=== PATIENT | male | born 1960 | race Caucasian/White ===

== ENCOUNTER 2016-07-10 12:25 | Outpatient (CLI) | payer BC | END 2016-07-10 12:26 | disposition home or self-care (01) | DX: Z00.00 Encounter for general adult medical examination without abnormal findings (principal); Z12.5 Encounter for screening for malignant neoplasm of prostate; R82.90 Unspecified abnormal findings in urine ==

== ENCOUNTER 2018-05-04 04:56 | Outpatient (CLI) | payer BC ==
[2018-05-04 05:20] LABS: BILIRUBIN,URINE NEGATIVE (NEGATIVE); GLUCOSE, URINE (UA) NEGATIVE (NEGATIVE); KETONES,URINE (UA) NEGATIVE (NEGATIVE); LEUKOCYTE ESTERASE, URINE NEGATIVE (NEGATIVE); NITRITE,URINE NEGATIVE (NEGATIVE); OCCULT BLOOD,URINE NEGATIVE (NEGATIVE); PH,URINE 6.5 PH (5.0-7.5); PROTEIN,URINE NEGATIVE (NEGATIVE); UROBILINOGEN,URINE 0.2 (NORMAL) E.U./dL (NORMAL)
[2018-05-04 05:30] LABS: BACTERIA,URINE None Seen /HPF (None Seen); CLARITY,URINE CLEAR (CLEAR); MUCUS,URINE Few Strands; RBC,URINE 0-5 /HPF (0-5); SQUAMOUS EPITHELIAL CELL,UR RARE Squamous (<= Few)
[2018-05-04 05:38] LABS: BASOPHILS # (AUTO) 0.1 10^3/uL (0.0-0.1); BASOPHILS % (AUTO) 0.8 %; EOSINOPHILS # (AUTO) 0.2 10^3/uL (0.0-0.7); EOSINOPHILS % (AUTO) 2.3 %; LYMPHOCYTES # (AUTO) 1.8 10^3/uL (1.5-3.5); LYMPHOCYTES % (AUTO) 26.4 %; MEAN CORPUSCULAR HEMOGLOBIN 29.1 pg (27.0-31.0); MEAN CORPUSCULAR VOLUME 85.7 fL (80.0-94.0); MEAN PLATELET VOLUME 7.3 fL (7.4-11.4); MONOCYTES # (AUTO) 0.5 10^3/uL (0.0-1.0); MONOCYTES % (AUTO) 7.9 %; NEUTROPHILS # (AUTO) 4.3 10^3/uL (1.5-6.6); NEUTROPHILS % (AUTO) 62.6 %; PLT - PLATELET COUNT 238 10^3/uL (130-450); RED CELL DISTRIBUTION WIDTH 13.3 % (12.0-15.0); WHITE BLOOD COUNT 6.8 x10^3/uL (4.8-10.8)
[2018-05-04 05:40] LABS: ALBUMIN 4.4 g/dL (3.2-5.5); ALBUMIN/GLOBULIN RATIO 1.5 (1.0-2.2); ALKALINE PHOSPHATASE 89 IU/L (42-121); ALT ALANINE AMINOTRANSFERASE 21 IU/L (10-60); AST ASPARTATE AMINOTRANSFERASE 21 IU/L (10-42); BILIRUBIN,TOTAL 0.6 mg/dL (0.2-1.0); BUN - BLOOD UREA NITROGEN 14 mg/dL (6-20); CALCIUM 9.5 mg/dL (8.5-10.3); CARBON DIOXIDE - CO2 27 mmol/L (21-32); CHLORIDE 104 mmol/L (101-111); CHOL/HDL RATIO 4.5 (<5.0); CHOLESTEROL 192 mg/dL; CREATININE 0.8 mg/dL (0.6-1.2); GFR - MDRD 99 (>89); GLUCOSE 117 mg/dL (70-100); HDL CHOLESTEROL 43 mg/dL; LDL CHOLESTEROL,CALCULATED 109 mg/dL; LDL/HDL RATIO 2.5 (<3.6); SODIUM 139 mmol/L (135-145); TOTAL PROTEIN 7.3 g/dL (6.7-8.2); VLDL CHOLESTEROL 40 mg/dL
== END 2018-05-04 04:57 | disposition home or self-care (01) ==
LOC: LAB 04:56
PROVIDERS: ATTEND Family Medicine
DX: R03.0 Elevated blood-pressure reading, without diagnosis of hypertension (principal)
CPT/HCPCS: 36415; 80053; 80061; 81001; 83721; 85025

== ENCOUNTER 2018-11-30 10:37 | Outpatient (CLI) | payer BC | END 2018-11-30 10:38 | disposition critical access hospital (66) | LOC: EMS 10:37 | PROVIDERS: ATTEND Surgery | DX: M54.5 Low back pain (principal); R25.2 Cramp and spasm | CPT/HCPCS: A0425; A0429 ==

== ENCOUNTER 2018-11-30 11:08 | Emergency (ER) | payer BC ==
--- NOTE | 2018-11-30 11:41 | ED Physician Documentation ---
PD HPI BACK INJURY - Stated complaint Stated Complaint: BACK SPASM - History obtained from History obtained from: Patient - History of Present Illness Location: Lower Type of injury: Other (has been moving a lot of gravel, lots of shoveling.). No: Fall, Twist Where injury occurred: Home Timing - onset: How many days ago (sore last few days with shoveling and liftin g. Has significant spasms last night into today.) Timing - details: Gradual onset, Still present (much worse today), Waxing and waning Quality: Pain, Spasm Worsened by: Moving, Palpating Associated symptoms: No: Fever, Weakness, Numbness, Incontinent of urine Similar symptoms before: Has not had sx before Recently seen: Not recently seen Review of Systems Constitutional: denies: Fever, Chills, Myalgias Nose: denies: Rhinorrhea / runny nose, Congestion GI: denies: Abdominal Pain, Nausea, Vomiting : denies: Incontinent Skin: denies: Rash, Lesions PD PAST MEDICAL HISTORY - Past Medical History Cardiovascular: Hypertension Respiratory: None Neuro: None Endocrine/Autoimmune: None GI: None : None HEENT: None Psych: None Musculoskeletal: None Derm: None - Past Surgical History Past Surgical History: No - Present Medications Home Medications: Ambulatory Orders Medication Instructions Recorded Confirmed Losartan Potassium 25 mg PO DAILY 11/30/18 11/30/18 Naproxen 500 mg PO BID #20 tablet 11/30/18 Oxycodone HCl/Acetaminophen 1 - 2 each PO Q6H PRN #20 tablet 11/30/18 [Percocet 5-325 mg Tablet] diazePAM [Diazepam] 5 mg PO TID PRN #20 tablet 11/30/18 - Allergies Allergies/Adverse Reactions: Allergies Allergy/AdvReac Type Severity Reaction Status Date / Time No Known Drug Allergies Allergy Verified 11/30/18 11:14 - Social History Does the pt smoke?: No Smoking Status: Never smoker Does the pt have substance abuse?: No PD ED PE NORMAL - General General: Alert and oriented X 3, Well developed/nourished, Other (appears in considerable pain with slight ROM. ) - Neck Neck: Supple, no meningeal sign, No adenopathy - Cardiac Cardiac: RRR, No murmur - Respiratory Respiratory: Clear bilaterally - Abdomen Abdomen: Soft, Non tender - Male Male : Deferred - Rectal Rectal: Deferred - Back Back: No CVA TTP, No spinal TTP (but tender in lower right paralumbar muscles. ) - Derm Derm: Normal color, Warm and dry, No rash - Extremities Extremities: Normal ROM s pain, No edema, No calf tenderness / cord - Neuro Neuro: Alert and oriented X 3, No motor deficit, No sensory deficit, Normal speech Results - Vitals Vitals: Oxygen O2 Source Room air - Labs Labs: Laboratory Tests 11/30/18 12:25 Urine Color YELLOW Urine Clarity CLEAR Urine pH 7.5 Ur Specific [place] <=1.005 Urine Protein NEGATIVE Urine Glucose (UA) NEGATIVE Urine Ketones NEGATIVE Urine Occult Blood NEGATIVE Urine Nitrite NEGATIVE Urine Bilirubin NEGATIVE Urine Urobilinogen 0.2 (NORMAL) Ur Leukocyte Esterase NEGATIVE Ur Microscopic Review NOT INDICATED Urine Culture Comments NOT INDICATED PD MEDICAL DECISION MAKING - ED course Complexity details: considered differential (low back muscular pain without red flags. ), d/w patient Departure - Departure Disposition: 01 Home, Self Care Clinical Impression: Spasm of back muscles Low back strain Qualifiers: Encounter type: initial encounter Qualified Code(s): S39.012A - Strain of muscle, fascia and tendon of lower back, initial encounter Condition: Stable Record reviewed to determine appropriate education?: Yes Instructions: ED Sprain Strain Lumbar Follow-Up: Mary Samaniego DO [Primary Care Provider] - Prescriptions: diazePAM [Diazepam] 5 mg PO TID PRN #20 tablet PRN Reason: Spasms Naproxen 500 mg PO BID #20 tablet Oxycodone HCl/Acetaminophen [Percocet 5-325 mg Tablet] 1 - 2 each PO Q6H PRN #20 tablet PRN Reason: pain Comments: Heat and gentle stretching for the back to reduce muscle spasming. Massage or chiropractic may help as well. Use an anti-inflammatory such as naproxen twice daily for the next week. Add diazepam if needed for spasms. Add Tylenol or oxycodone as needed for pains. Recheck if not improved well over the next several days and return sooner if worse. Discharge Date/Time: 11/30/18 13:36
[2018-11-30] MEDS ORDERED: TRIAMCINOLONE 40 MG/ML VIAL IM STA (12:06)
[2018-11-30] MEDS ORDERED: LIDOCAINE MPF 1%-EPI 1:200000 30 ML VIAL SUBQ STA (12:06)
[2018-11-30] MEDS ORDERED: MORPHINE 10 MG/ML VIAL IVP STA ×2 (12:06→13:19)
[2018-11-30] MEDS ORDERED: KETOROLAC 30 MG/ML VIAL IVP STA (12:06)
[2018-11-30] MEDS ORDERED: diazePAM INJ 5 MG/ML SYRINGE IVP STA (12:06)
[2018-11-30 12:32] LABS: BILIRUBIN,URINE NEGATIVE (NEGATIVE); GLUCOSE, URINE (UA) NEGATIVE (NEGATIVE); KETONES,URINE (UA) NEGATIVE (NEGATIVE); LEUKOCYTE ESTERASE, URINE NEGATIVE (NEGATIVE); NITRITE,URINE NEGATIVE (NEGATIVE); OCCULT BLOOD,URINE NEGATIVE (NEGATIVE); PH,URINE 7.5 PH (5.0-7.5); PROTEIN,URINE NEGATIVE (NEGATIVE); UROBILINOGEN,URINE 0.2 (NORMAL) E.U./dL (NORMAL)
[2018-11-30 12:34] LABS: CLARITY,URINE CLEAR (CLEAR)
[2018-11-30 13:31] VITALS: BP 138/82
== END 2018-11-30 13:36 | disposition home or self-care (01) ==
LOC: EDUNIT# → ED 11:08
DX: M62.830 Muscle spasm of back (principal); S39.012A Strain of muscle, fascia and tendon of lower back, initial encounter; X50.0XXA Overexertion from strenuous movement or load, initial encounter; Y93.H1 Activity, digging, shoveling and raking; I10 Essential (primary) hypertension
CPT/HCPCS: 81001; 81003; 87086; 96374; 96375; 96376; 99283

== ENCOUNTER 2019-05-19 10:05 | Outpatient (CLI) | payer BC ==
[2019-05-19 12:53] LABS: BILIRUBIN,URINE NEGATIVE (NEGATIVE); GLUCOSE, URINE (UA) NEGATIVE (NEGATIVE); KETONES,URINE (UA) NEGATIVE (NEGATIVE); LEUKOCYTE ESTERASE, URINE NEGATIVE (NEGATIVE); NITRITE,URINE NEGATIVE (NEGATIVE); OCCULT BLOOD,URINE NEGATIVE (NEGATIVE); PROTEIN,URINE NEGATIVE (NEGATIVE); UROBILINOGEN,URINE 0.2 (NORMAL) E.U./dL (NORMAL)
[2019-05-19 13:00] LABS: CLARITY,URINE CLEAR (CLEAR)
[2019-05-19 13:20] LABS: ALBUMIN 4.6 g/dL (3.2-5.5); ALBUMIN/GLOBULIN RATIO 1.5 (1.0-2.2); ALKALINE PHOSPHATASE 76 IU/L (42-121); ALT ALANINE AMINOTRANSFERASE 20 IU/L (10-60); AST ASPARTATE AMINOTRANSFERASE 20 IU/L (10-42); BILIRUBIN,TOTAL 0.6 mg/dL (0.2-1.0); BUN - BLOOD UREA NITROGEN 12 mg/dL (6-20); CALCIUM 9.6 mg/dL (8.5-10.3); CARBON DIOXIDE - CO2 28 mmol/L (21-32); CHLORIDE 104 mmol/L (101-111); CHOL/HDL RATIO 4.3 (<5.0); CHOLESTEROL 208 mg/dL; CREATININE 0.8 mg/dL (0.6-1.2); GFR - MDRD 99 (>89); GLUCOSE 105 mg/dL (70-100); HDL CHOLESTEROL 48 mg/dL; LDL CHOLESTEROL,CALCULATED 130 mg/dL; LDL/HDL RATIO 2.7 (<3.6); SODIUM 139 mmol/L (135-145); TOTAL PROTEIN 7.7 g/dL (6.7-8.2); VLDL CHOLESTEROL 30 mg/dL
[2019-05-19 13:22] LABS: BASOPHILS % (AUTO) 0.5 %; EOSINOPHILS # (AUTO) 0.1 10^3/uL (0.0-0.7); EOSINOPHILS % (AUTO) 1.8 %; HGB - HEMOGLOBIN 16.4 g/dL (14.0-18.0); LYMPHOCYTES # (AUTO) 1.8 10^3/uL (1.5-3.5); LYMPHOCYTES % (AUTO) 26.7 %; MEAN CORPUSCULAR HEMOGLOBIN 28.8 pg (27.0-31.0); MEAN CORPUSCULAR HGB CONC 33.3 g/dL (32.0-36.0); MEAN CORPUSCULAR VOLUME 86.3 fL (80.0-94.0); MEAN PLATELET VOLUME 9.6 fL (7.4-11.4); MONOCYTES # (AUTO) 0.5 10^3/uL (0.0-1.0); MONOCYTES % (AUTO) 7.1 %; NEUTROPHILS # (AUTO) 4.2 10^3/uL (1.5-6.6); NEUTROPHILS % (AUTO) 63.6 %; PLT - PLATELET COUNT 271 10^3/uL (130-450); RED CELL DISTRIBUTION WIDTH 12.2 % (12.0-15.0); WHITE BLOOD COUNT 6.6 x10^3/uL (4.8-10.8)
== END 2019-05-19 23:59 | disposition home or self-care (01) ==
LOC: LAB.WCP 10:05
PROVIDERS: ATTEND Family Medicine
DX: Z12.5 Encounter for screening for malignant neoplasm of prostate (principal); R03.0 Elevated blood-pressure reading, without diagnosis of hypertension; R31.9 Hematuria, unspecified
CPT/HCPCS: 36415; 80053; 80061; 81001; 81003; 83721; 84153; 85025; 87086

== ENCOUNTER 2019-05-19 10:57 | Outpatient (CLI) | payer BC | END 2019-05-19 10:58 | disposition home or self-care (01) | LOC: RT 10:57 | PROVIDERS: ATTEND Internal Medicine Gastroenterology | DX: Z01.818 Encounter for other preprocedural examination (principal); Z12.5 Encounter for screening for malignant neoplasm of prostate; Z12.11 Encounter for screening for malignant neoplasm of colon | CPT/HCPCS: 36415; 80053; 80061; 81003; 84153; 85025; 93005 ==

== ENCOUNTER 2019-05-26 09:11 | Day surgery (SDC) | payer BC ==
[2019-05-26] MEDS ORDERED: MIDAZOLAM 2 MG/2 ML VIAL IVP ONE (09:12)
[2019-05-26] MEDS ORDERED: fentaNYL 250 MCG/5 ML VIAL IVP ONE (09:12)
[2019-05-26] MEDS ORDERED: LACTATED RINGERS 1,000 ML IV ONE (09:19)
[2019-05-26 11:36] VITALS: BP 128/81
== END 2019-05-26 09:12 | disposition home or self-care (01) ==
LOC: SDS 09:11
PROVIDERS: ATTEND Internal Medicine Gastroenterology
PROC: 0DBL8ZZ Excision of Transverse Colon, Via Natural or Artificial Opening Endoscopic (ICD-10-PCS; principal; 2019-05-26 10:45)
DX: Z12.11 Encounter for screening for malignant neoplasm of colon (principal); D12.3 Benign neoplasm of transverse colon; I10 Essential (primary) hypertension
CPT/HCPCS: 45380; J3010; J7120

== ENCOUNTER 2019-08-08 20:19 | Emergency (ER) | payer BC ==
[2019-08-08 20:34] VITALS: BP 175/101
[2019-08-08] MEDS ORDERED: diazePAM 5 MG TABLET PO STA (21:01)
[2019-08-08] MEDS ORDERED: DEXAMETHASONE 10 MG/ML VIAL PO STA (21:01)
[2019-08-08] MEDS ORDERED: oxyCODONE 5 MG TABLET PO STA (21:01)
[2019-08-08] MEDS ORDERED: HYDROmorphone 1 MG/ML CARPUJECT IM STA (21:01)
[2019-08-08] MEDS ORDERED: CHERRY SYRUP 10 ML UDC PO ONE (21:01)
--- NOTE | 2019-08-08 21:04 | ED Physician Documentation ---
PD HPI BACK PAIN - Stated complaint Stated Complaint: BACK SPASM - Chief complaint Chief Complaint: Back Pain - History obtained from History obtained from: Patient, Family - History of Present Illness Timing - onset: How many weeks ago (1.5) Timing - duration: Weeks (1.5) Timing - details: Gradual onset Pain level max: 9 Pain level now: 9 Location: Lower, Right, Left Quality: Pain, Spasm, Similar to prior episodes Associated symptoms: No: Fever, Weakness, Numbness, Incontinent of urine, Unable to urinate, Hematuria, Incontinent of stool Improves with: Rest Worsened by: Movement, Lifting Contributing factors: Lifting (moving topsoil). No: Twisting, Trauma, Anticoagulated, Cancer, IVDA, Out of meds Similar symptoms before: Diagnosis (back spasm) - Additional information Additional information: Patient with back spasms that started after moving topsoil. Went to the chiropractor today, has not had any relief. Review of Systems Constitutional: denies: Fever, Chills GI: denies: Vomiting, Diarrhea, Hematemesis : denies: Dysuria, Frequency, Hesitancy, Incontinent Skin: denies: Rash Musculoskeletal: denies: Neck pain Neurologic: denies: Focal weakness, Numbness, Headache PD PAST MEDICAL HISTORY - Past Medical History Cardiovascular: Hypertension Respiratory: None Neuro: None Endocrine/Autoimmune: None GI: None : None HEENT: None Psych: None Musculoskeletal: None Derm: None - Past Surgical History Past Surgical History: No General: Colonoscopy - Present Medications Home Medications: Ambulatory Orders Medication Instructions Recorded Confirmed Losartan Potassium 50 mg PO DAILY 11/30/18 08/03/19 Cyclobenzaprine [Flexeril] 10 mg PO TID PRN #20 tablet 08/03/19 Hydrocodone/Acetaminophen 1 - 2 each PO Q6H PRN #14 tablet 08/03/19 [Hydrocodon-Acetaminophen 5-325] Meloxicam [Mobic] 15 mg PO DAILY PRN #20 tablet 08/08/19 Oxycodone HCl/Acetaminophen 1 - 2 each PO Q6H PRN #14 tablet 08/08/19 [Percocet 5-325 mg Tablet] diazePAM [Valium] 5 - 10 mg PO TID PRN #15 tablet 08/08/19 predniSONE [Deltasone] 10 mg PO [id number] #42 tab 08/08/19 - Allergies Allergies/Adverse Reactions: Allergies Allergy/AdvReac Type Severity Reaction Status Date / Time No Known Drug Allergies Allergy Verified 08/03/19 10:33 - Social History Does the pt smoke?: No Smoking Status: Never smoker Does the pt have substance abuse?: No PD ED PE NORMAL - Vitals Vital signs reviewed: Yes - General General: Alert and oriented X 3, No acute distress, Well developed/nourished - HEENT HEENT: PERRL, Moist mucous membranes - Neck Neck: Supple, no meningeal sign - Cardiac Cardiac: RRR, Strong equal pulses - Respiratory Respiratory: No respiratory distress, Clear bilaterally - Abdomen Abdomen: Soft, Non tender, Non distended - Back Back: No spinal TTP, Other (Paraspinal spasm bilateral low lumbar. No step-off or deformity. No midline tenderness) - Derm Derm: Warm and dry - Extremities Extremities: Other (Normal bilateral lower extremity patellar and ankle jerk reflexes. Normal great toe extension bilaterally. no saddle anesthesia) - Neuro Neuro: Alert and oriented X 3, No motor deficit, No sensory deficit - Psych Psych: Normal mood, Normal affect Results - Vitals Vitals: Vital Signs - 24 hr 08/08/19 20:28 Temperature 36.6 C Heart Rate 64 Respiratory 16 Rate Blood Pressure 175/101 H O2 Saturation 97 Oxygen O2 Source Room air PD MEDICAL DECISION MAKING - ED course Complexity details: reviewed old records, re-evaluated patient, considered differential (No cauda equina, no spinal epidural abscess, no fracture, no aortic dissection or evidence of aneursym rupture), d/w patient, d/w family ED course: Patient with back spasm. Had responded well to Percocet and Valium in the past. We will trial this again. Had responded well to steroids in the past as well. Will place on steroid taper. No evidence of cauda equina, epidural abscess. No evidence of fracture. Patient counseled regarding signs and symptoms for which I believe and urgent re-evaluation would be necessary. Patient with good understanding of and agreement to plan and is comfortable going home at this time This document was made in part using voice recognition software. While efforts are made to proofread this document, sound alike and grammatical errors may occur. Departure - Departure Disposition: 01 Home, Self Care Clinical Impression: Back muscle spasm Condition: Good Instructions: ED Spasm Back No Trauma Follow-Up: Mary Samaniego DO [Primary Care Provider] - Within 1 week Prescriptions: diazePAM [Valium] 5 - 10 mg PO TID PRN #15 tablet PRN Reason: Spasms Meloxicam [Mobic] 15 mg PO DAILY PRN #20 tablet PRN Reason: pain Oxycodone HCl/Acetaminophen [Percocet 5-325 mg Tablet] 1 - 2 each PO Q6H PRN #14 tablet PRN Reason: pain predniSONE [Deltasone] 10 mg PO [id number] #42 tab Comments: This should improve over the next week. Return if you worsen. Follow-up with your doctor for further care. Do not drink alcohol or drive while on narcotic pain medicine. Note that many narcotic pain relievers also contain tylenol/acetaminophen. Please ensure that your total dose of acetaminophen from all sources does not exceed 3 grams (3000mg) per day. You may constipated on this medication, take a stool softener such as "Colace" twice a day while you are on it. Also recommend a [id number] laxative such as senna or MiraLAX any day that you do not have a bowel movement. If you received narcotic pain medication in the emergency department, do not drive or operate machinery for the next 24 hours.
== END 2019-08-08 21:36 | disposition home or self-care (01) ==
LOC: ED 20:19
DX: M62.830 Muscle spasm of back (principal)
CPT/HCPCS: 96372; 99284; A9270; J1170

== ENCOUNTER 2019-12-12 21:35 | Observation (INO) | payer BC ==
[2019-12-12] MEDS ORDERED: DILTIAZEM 50 MG/10 ML VIAL IVP ONE ×2 (21:57→22:26)
[2019-12-12] MEDS ORDERED: SODIUM CHLORIDE 0.9% 1,000 ML IV STA (21:57)
--- NOTE | 2019-12-12 21:58 | ED Physician Documentation ---
History of Present Illness - Stated complaint Stated Complaint: FAST HEART - Chief complaint Chief Complaint: Cardiac - History obtained from History obtained from: Patient - History of Present Illness Timing: Enter time (2099), Today - Additonal information Additional information: 59-year-old male with history of hypertension was sitting at his home today when he developed palpitations in his chest. He felt that his heart was racing. He denies any chest pain he did get some slight shortness of breath. He has not been ill recently he states that he spent most of the day and side today when he ended his [employer] shopping. He has been out in the garden working. He denies any alcohol use recently. He has not been ill recently. He has never had atrial fibrillation. Review of Systems Constitutional: denies: Fever Eyes: denies: Decreased vision Ears: denies: Ear pain Nose: denies: Congestion Throat: denies: Sore throat Cardiac: reports: Palpitations. denies: Chest pain / pressure, Pedal edema, Calf pain Respiratory: denies: Dyspnea, Cough GI: denies: Abdominal Pain, Nausea, Vomiting, Constipation, Diarrhea : denies: Dysuria, Frequency Skin: denies: Rash Musculoskeletal: denies: Neck pain, Back pain, Extremity pain Neurologic: denies: Generalized weakness, Focal weakness, Numbness PD PAST MEDICAL HISTORY - Past Medical History Past Medical History: Yes Cardiovascular: Hypertension Respiratory: None Neuro: None Endocrine/Autoimmune: None GI: None : None HEENT: None Psych: None Musculoskeletal: None Derm: None - Past Surgical History Past Surgical History: No General: Colonoscopy - Present Medications Home Medications: Ambulatory Orders Medication Instructions Recorded Confirmed Losartan Potassium 50 mg PO DAILY 11/30/18 08/03/19 Cyclobenzaprine [Flexeril] 10 mg PO TID PRN #20 tablet 08/03/19 Hydrocodone/Acetaminophen 1 - 2 each PO Q6H PRN #14 tablet 08/03/19 [Hydrocodon-Acetaminophen 5-325] Meloxicam [Mobic] 15 mg PO DAILY PRN #20 tablet 08/08/19 Oxycodone HCl/Acetaminophen 1 - 2 each PO Q6H PRN #14 tablet 08/08/19 [Percocet 5-325 mg Tablet] diazePAM [Valium] 5 - 10 mg PO TID PRN #15 tablet 03/13/20 predniSONE [Deltasone] 10 mg PO [id number] #42 tab 08/08/19 - Allergies Allergies/Adverse Reactions: Allergies Allergy/AdvReac Type Severity Reaction Status Date / Time No Known Drug Allergies Allergy Verified 12/12/19 21:44 - Social History Does the pt smoke?: No Smoking Status: Never smoker Does the pt drink ETOH?: Yes Does the pt have substance abuse?: No - Immunizations Immunizations are current?: Yes - POLST Patient has POLST: No PD ED PE NORMAL - Vitals Vital signs reviewed: Yes (Tachycardic and hypertensive) - General General: Alert and oriented X 3, No acute distress, Well developed/nourished - HEENT HEENT: Atraumatic, PERRL, EOMI - Neck Neck: Supple, no meningeal sign - Cardiac Cardiac: No murmur, Other (Rapid irregularly irregular heart rate) - Respiratory Respiratory: No respiratory distress, Clear bilaterally - Abdomen Abdomen: Normal bowel sounds, Soft, Non tender, Non distended, No organomegaly - Back Back: No CVA TTP, No spinal TTP - Derm Derm: Normal color, Warm and dry, No rash - Extremities Extremities: No deformity, No edema - Neuro Neuro: Alert and oriented X 3, cashier associate 2-12 intact, No motor deficit, No sensory deficit, Normal speech Eye Opening: Spontaneous Motor: Obeys Commands Verbal: Oriented GCS Score: 15 - Psych Psych: Normal mood, Normal affect Results - Vitals Vitals: Vital Signs - 24 hr 12/12/19 12/12/19 12/12/19 21:35 21:43 22:35 Temperature 36.0 C L Heart Rate 147 H 142 H 103 H Respiratory 20 20 18 Rate Blood Pressure 146/113 H 146/113 H 134/83 H O2 Saturation 99 99 98 12/12/19 12/12/19 12/13/19 23:07 23:59 01:00 Temperature Heart Rate 89 92 86 Respiratory 18 16 16 Rate Blood Pressure 125/84 H 125/87 H 126/81 H O2 Saturation 98 98 98 Oxygen O2 Source Room air - EKG (time done) 2137 Rate: Rate (enter#) (167) Rhythm: Atrial fibrillation Ischemia: ST depression (lateral consistent with rate related ) Compare to prior EKG: Changed from prior EKG (SPT 05-19-2019 rate has increased rhythm has changed to afib and the lateral ST depression strain pattern has developed. ) Computer interpretation: Agree with computer - Labs Labs: Laboratory Tests 12/12/19 12/12/19 12/12/19 21:48 21:48 21:48 WBC 9.4 RBC 5.48 Hgb 16.4 Hct 47.3 MCV 86.3 MCH 29.9 MCHC 34.7 RDW 12.3 Plt Count 266 MPV 9.3 Neut # (Auto) 5.8 Lymph # (Auto) 2.6 Hubbard # (Auto) 0.7 Eos # (Auto) 0.2 Baso # (Auto) 0.0 Absolute Nucleated RBC 0.00 Nucleated RBC % 0.0 Sodium 140 Potassium 3.7 Chloride 103 Carbon Dioxide 26 Anion Gap 11.0 BUN 15 Creatinine 0.8 Estimated GFR (MDRD) 99 Glucose 130 H Calcium 9.8 Total Bilirubin 0.8 AST 27 ALT 31 Alkaline Phosphatase 84 Troponin I High Sens 4.2 Total Protein 7.6 Albumin 5.2 Globulin 2.4 Albumin/Globulin Ratio 2.2 Lipase 31 12/13/19 00:25 WBC RBC Hgb Hct MCV MCH MCHC RDW Plt Count MPV Neut # (Auto) Lymph # (Auto) Hubbard # (Auto) Eos # (Auto) Baso # (Auto) Absolute Nucleated RBC Nucleated RBC % Sodium Potassium Chloride Carbon Dioxide Anion Gap BUN Creatinine Estimated GFR (MDRD) Glucose Calcium Total Bilirubin AST ALT Alkaline Phosphatase Troponin I High Sens 8.6 Total Protein Albumin Globulin Albumin/Globulin Ratio Lipase Procedures - IVC sono (time) 2144 Bedside IVC sono: IVC measures (cm) (UNABLE TO VISUALIZE VESSLE) PD MEDICAL DECISION MAKING - ED course Complexity details: reviewed old records, reviewed results, re-evaluated patient, considered differential, d/w patient, d/w family ED course: 59-year-old male with new onset atrial fibrillation with a rapid ventricular response has a rate of 165 and this is improved with use of 20 mg of diltiazem intravenously with his rate reducing to about 120 he had subsequent further reduction in his rate to under 100 and around 80-90 with a 25 mg second dose. He remained in atrial fibrillation and his rate was variable. He did have episodes of heart rates in the 130s and 140s. I did not feel confident that his rate was adequately controlled and I have asked our hospitalist Dr. Malcom Cai to admit the patient to observation with new onset atrial fibrillation with rapid ventricular response. I did not feel that an attempt at cardioversion was indicated and that the patient was not compromised by this and there is a great deal of uncertainty as to when the patient went into atrial fibrillation. He does not have symptoms when his rate is controlled. Departure - Departure Disposition: ED Place in Observation Clinical Impression: Atrial fibrillation with RVR Condition: Stable
[2019-12-12 22:01] LABS: BASOPHILS % (AUTO) 0.4 %; EOSINOPHILS # (AUTO) 0.2 10^3/uL (0.0-0.7); EOSINOPHILS % (AUTO) 2.2 %; HGB - HEMOGLOBIN 16.4 g/dL (14.0-18.0); LYMPHOCYTES # (AUTO) 2.6 10^3/uL (1.5-3.5); LYMPHOCYTES % (AUTO) 27.8 %; MEAN CORPUSCULAR HEMOGLOBIN 29.9 pg (27.0-31.0); MEAN CORPUSCULAR HGB CONC 34.7 g/dL (32.0-36.0); MEAN CORPUSCULAR VOLUME 86.3 fL (80.0-94.0); MEAN PLATELET VOLUME 9.3 fL (7.4-11.4); MONOCYTES # (AUTO) 0.7 10^3/uL (0.0-1.0); MONOCYTES % (AUTO) 7.3 %; NEUTROPHILS # (AUTO) 5.8 10^3/uL (1.5-6.6); NEUTROPHILS % (AUTO) 61.9 %; PLT - PLATELET COUNT 266 10^3/uL (130-450); RED BLOOD COUNT 5.48 10^6/uL (4.70-6.10); RED CELL DISTRIBUTION WIDTH 12.3 % (12.0-15.0); WHITE BLOOD COUNT 9.4 x10^3/uL (4.8-10.8)
[2019-12-12] MEDS ORDERED: DILTIAZEM 50 MG/10 ML VIAL ONE (22:03)
[2019-12-12 22:11] LABS: ALBUMIN 5.2 g/dL (3.2-5.5); ALBUMIN/GLOBULIN RATIO 2.2 (1.0-2.2); BILIRUBIN,TOTAL 0.8 mg/dL (0.2-1.0); CALCIUM 9.8 mg/dL (8.5-10.3); CREATININE 0.8 mg/dL (0.6-1.2); TOTAL PROTEIN 7.6 g/dL (6.7-8.2)
[2019-12-13] MEDS ORDERED: SODIUM CHLORIDE FLUSH 0.9% 10 ML SYRINGE IVP PRN (02:07)
[2019-12-13] MEDS ORDERED: diltiaZEM CD 120 MG CAPSULE PO STA (02:12)
--- NOTE | 2019-12-13 02:25 | HISTORY & PHYSICAL EXAMINATION ---
Chief Complaint - Chief Complaint Chief Complaint: racing heart rate History of Present Illness - Admitted From Admitted From:: [facility] ED - History Obtained From Records Reviewed: yes History obtained from: patient - History of Present Illness HPI Comment/Other: Patient is a 59-year-old male with medical history significant for hypertension who presented to the ED with complaint of racing heart rate which started last night between 8:30pm and 9:00pm. He had just showered prior. He denies any previous occurrence of the symptoms. In the emergency room he was found to an irregularly irregular rhythm with a heart rate of 147. He denied chest pain, dyspnea, abdominal pain, nausea, vomiting, fever or chills. He denied any recent travels or trauma. He does not have any lower extremity edema. He denies history of cardiac disease except for hypertension. He rarely drinks alcohol. He was given a dose of diltiazem IV in the emergency room which improved his heart rate to between 90 and 100. However simply going from a laying to sitting position his heart rate spikes to 125. As a result of the persistent fluctuation in his heart rate he was presented for admission for further treatment. History - Past Medical History Cardiovascular: reports: Hypertension Respiratory: reports: None Neuro: reports: None Endocrine/Autoimmune: reports: None GI: reports: None : reports: None HEENT: reports: None Psych: reports: None Musculoskeletal: reports: None Derm: reports: None MRSA Hx?: No - Past Surgical History General: reports: Cholecystectomy, Colonoscopy - Family & Social History Family History Comment/Other: His mother had a significant history of heart disease. She underwent a CABG at one point in her life. His father had [place] inson's disease. Living arrangement: At home Living Situation: With spouse/s.o. Social History Notes: He lives at home with his spouse. He does not smoke tobacco products. He rarely drinks alcohol. He denied any illicit drug use. - POLST Patient has POLST: No POLST Status: Full Code Meds/Allgy - Home Medications Home Medications: Ambulatory Orders Medication Instructions Recorded Confirmed Losartan Potassium 50 mg PO DAILY 11/30/18 08/03/19 Cyclobenzaprine [Flexeril] 10 mg PO TID PRN #20 tablet 08/03/19 Hydrocodone/Acetaminophen 1 - 2 each PO Q6H PRN #14 tablet 08/03/19 [Hydrocodon-Acetaminophen 5-325] Meloxicam [Mobic] 15 mg PO DAILY PRN #20 tablet 08/08/19 Oxycodone HCl/Acetaminophen 1 - 2 each PO Q6H PRN #14 tablet 08/08/19 [Percocet 5-325 mg Tablet] diazePAM [Valium] 5 - 10 mg PO TID PRN #15 tablet 08/08/19 predniSONE [Deltasone] 10 mg PO [id number] #42 tab 08/08/19 - Allergies Allergies/Adverse Reactions: Allergies Allergy/AdvReac Type Severity Reaction Status Date / Time No Known Drug Allergies Allergy Verified 12/12/19 21:44 Review of Systems - Constitutional Constitutional: denies: Fatigue, Fever, Chills - Eyes Eyes: denies: Pain - Ears, Nose & Throat Ears, Nose & Throat: denies: Ear pain - Cardiovascular Cariovascular: reports: Irregular heart rate. denies: Chest pain, Edema, Lightheadedness, Syncope, Exertional dyspnea, Decr. exercise tolerance - Respiratory Respiratory: denies: Cough, Sputum production, Wheezing, SOB at rest, SOB with exertion - Gastrointestinal Gastrointestinal: denies: Abdominal pain, Abdominal distention, Nausea, Vomiting, Reflux/heartburn - Genitourinary Genitourinary: denies: Dysuria, Frequency - Musculoskeletal Musculoskeletal: denies: Muscle pain, Back pain, Muscle aches - Integumentary Integumentary: denies: Rash, Pruritis, Lesions - Neurological Neurological: denies: General weakness, Focal weakness, Headache, Dizziness - Psychiatric Psychiatric: denies: Depression, Anxiety - Endocrine Endocrine: denies: Polyuria, Polydypsia - Hematologic/Lymphatic Hematologic/Lymphatic: denies: Anemia, Bruising, Petechiae Prior Level of Functionality: He is independent for activities of daily living Exam - Vital Signs Vital Signs: Vital Signs x48h Temp Pulse Resp BP Pulse Ox 12/13/19 01:55 83 18 136/80 H 98 12/13/19 01:00 86 16 126/81 H 98 12/12/19 23:59 92 16 125/87 H 98 12/12/19 23:07 89 18 125/84 H 98 12/12/19 22:35 103 H 18 134/83 H 98 12/12/19 21:43 142 H 20 146/113 H 99 12/12/19 21:35 36.0 C L 147 H 20 146/113 H 99 - Physical Exam General Appearance: positive: No acute distress, Alert Eyes Bilateral: positive: PERRL, EOMI ENT: positive: No signs of dehydration Neck: positive: No JVD, Trachea midline Respiratory: positive: Chest non-tender, No respiratory distress, Breath sounds nml. negative: Wheezes, Rales, Rhonchi Cardiovascular: positive: No murmur, Irregularly irregular, Tachycardia Abdomen: positive: Non-tender, No organomegaly, Nml bowel sounds, No distention. negative: Guarding, Rebound Back: positive: Nml inspection Skin: positive: Color nml, No rash, Warm, Dry Extremities: positive: Non-tender, Full ROM, Nml appearance, No pedal edema Neurologic/Psychiatric: positive: Oriented x3, Mood/affect nml Conclusion/Plan - Problem List (1) Atrial fibrillation with RVR Conclusion/Plan: Patient received a total of 50 mg IV of diltiazem in the ED. His heart rate improved from 147 to between 90s to 100 However patient's heart rate would readily spike up to the 120s with the slightest position change. Diltiazem 120 extended release has been ordered. We will also maintain with diltiazem immediate release 30 mg every 6 hours. Patient will likely be discharged with an oral anticoagulant. Patient will need a 2D echocardiogram. I advised him that he would need to follow-up with his primary care physician to have this done as an outpatient since echo is not available over the weekend. Troponin has been negative x2. Trending troponin x1 more. Will check BNP. TSH pending. (2) Hypertension Conclusion/Plan: Currently normotensive. Patient is on losartan 50 mg p.o. daily at home. Will resume once verified. - Lab Results Fish Bones: 12/12/19 21:48 12/12/19 21:48 Core Measures - Anticipated LOS I expect patient to be DC'd or transferred within 96 hours.: Yes - DVT/VTE - Prophylaxis VTE/DVT Device ordered at admit?: Yes VTE/DVT Prophylaxis med ordered at admit?: Yes
[2019-12-13] MEDS ORDERED: diltiaZEM 30 MG TABLET PO SCH (03:00)
[2019-12-13 06:24] LABS: BASOPHILS % (AUTO) 0.5 %; EOSINOPHILS # (AUTO) 0.2 10^3/uL (0.0-0.7); EOSINOPHILS % (AUTO) 2.9 %; HGB - HEMOGLOBIN 15.8 g/dL (14.0-18.0); LYMPHOCYTES # (AUTO) 2.1 10^3/uL (1.5-3.5); LYMPHOCYTES % (AUTO) 29.1 %; MEAN CORPUSCULAR HGB CONC 34.6 g/dL (32.0-36.0); MEAN CORPUSCULAR VOLUME 86.7 fL (80.0-94.0); MEAN PLATELET VOLUME 9.2 fL (7.4-11.4); MONOCYTES # (AUTO) 0.6 10^3/uL (0.0-1.0); MONOCYTES % (AUTO) 8.3 %; NEUTROPHILS # (AUTO) 4.3 10^3/uL (1.5-6.6); NEUTROPHILS % (AUTO) 58.9 %; PLT - PLATELET COUNT 230 10^3/uL (130-450); RED BLOOD COUNT 5.27 10^6/uL (4.70-6.10); RED CELL DISTRIBUTION WIDTH 12.4 % (12.0-15.0); WHITE BLOOD COUNT 7.3 x10^3/uL (4.8-10.8)
[2019-12-13 06:35] LABS: CALCIUM 9.2 mg/dL (8.5-10.3); CREATININE 0.6 mg/dL (0.6-1.2)
[2019-12-13] MEDS ORDERED: ASPIRIN CHEW 81 MG TABLET PO STA (07:54)
[2019-12-13] MEDS: diltiaZEM 30 MG TABLET PO SCH ×2 (08:33→15:44)
--- NOTE | 2019-12-13 08:34 | PHARMACY PROGRESS NOTE ---
- Best Possible Medication History Admit Date and Time: 12/13/19 0207 Processed by: Pharmacy Medication History completed: Yes Secondary Source(s): Physician records, Pharmacy records, Insurance records As the person ultimately responsible for medication therapy, providers are able to order a medication from an existing home medication list in [facility] via the "Reconcile Routine" prior to Confirmation of that medication by system support technician. Such practice is discouraged except when the physician, in their clinical judgment, deems that a medical need exists for a medication without regard to previous use.
[2019-12-13] MEDS ORDERED: HEPARIN 5,000 UNIT/ML VIAL SUBQ SCH (09:00)
[2019-12-13] MEDS ORDERED: SODIUM CHLORIDE FLUSH 0.9% 10 ML SYRINGE IVP SCH (09:00)
[2019-12-13 15:57] VITALS: BP 126/76
--- NOTE | 2019-12-13 16:04 | Discharge Plan ---
Discharge Plan Problem Reviewed?: Yes Disposition: Home, Self Care Condition: Stable Prescriptions: Aspirin [Aspirin EC] 162 mg PO DAILY #60 tablet. diltiaZEM CD [Cardizem Cd] 180 mg PO DAILY #30 capsule Diet: Low Sodium Activity Restrictions: Activity as Tolerated Shower Restrictions: No Driving Restrictions: No Instruction Topics: Stroke Prevent Live W Atrial Fib Health Concerns: You were admitted with new onset of atrial fibrillation with a rapid heart rate. The medicine that you were given slowed it down and it converted to a normal rhythm. We could not find the reason for you having the new atrial fib (no heart attack, no hyperthyroidism), but you still needs some outpatient testing done for complete evaluation. You are being sent home on new prescription for Cardizem CD to take once a day. You should also take aspirin daily for the rest of your life. You can stop taking the Losartan. Please see your PCP soon for further evaluation: You need an echocardiogram, stress test and sleep study. The new prescription has been electronically sent to your [facility] pharmacy in [place]. Plan of Treatment: As above. Care Goals: Further evaluation and stabilization are the goals. Assessment: The patient understands and is agreeable with the plan. No Smoking: If you smoke, Please STOP! Call for help. Follow-up with: Mary Samaniego DO [Primary Care Provider] -
--- NOTE | 2019-12-13 16:08 | DISCHARGE SUMMARY ---
Discharge Summary Admit Date: 12/13/19 Discharge Date: 12/13/19 Discharging Provider: Dr Meaghan Estrada Primary Care Provider: Dr Mary Samaniego Condition at Discharge: Stable Discharge Disposition: 01 Home, Self Care - HPI History of Present Illness: From the admission H&P of Dr. Dorie Duque: Patient is a 59-year-old male with medical history significant for hypertension who presented to the ED with complaint of racing heart rate which started last night between 8:30pm and 9:00pm. He had just showered prior. He denies any previous occurrence of the symptoms. In the emergency room he was found to an irregularly irregular rhythm with a heart rate of 147. He denied chest pain, dyspnea, abdominal pain, nausea, vomiting, fever or chills. He denied any recent travels or trauma. He does not have any lower extremity edema. He denies history of cardiac disease except for hypertension. He rarely drinks alcohol. He was given a dose of diltiazem IV in the emergency room which improved his heart rate to between 90 and 100. However simply going from a laying to sitting position his heart rate spikes to 125. As a result of the persistent fluctuation in his heart rate he was presented for admission for further treatment and will placed in Observation status. - HOSPITAL COURSE Hospital Course: 1) New onset Afib Patient had negative troponins, he denied anginal or CHF symptoms, TSH was normal, there was no acute pulmonary problems. The patient did state that he might have sleep apnea. He was told that he needs a sleep study for completeness of work-up of this new onset A. fib. He was started on Cardizem 30 mg p.o. every 6 hours and after several doses the heart rate slowed to 60 and he converted to sinus rhythm. He was discharged on a dose of Cardizem CD 180 mg daily, this was to take the place of his Losartan for blood pressure control as well. His CHADS score was 1 therefore he was started on an aspirin a day for stroke prophylaxis. He was told to see his PCP soon for further work-up: he needs an Echo (we did not have Echo service available here on the weekend), and a stress test to evaluate for CAD. Further Cardiology management may also be needed. 2) HTN He was on Losartan before this hospitalization. This was changed to Cardizem CD 180 mg daily (as above). 3) Sleep apnea The patient thinks he has sleep apnea because the reports very loud snoring and he has never had an official sleep study. This should be done for evaluation and management. - ALLERGIES Allergies/Adverse Reactions: Allergies Allergy/AdvReac Type Severity Reaction Status Date / Time No Known Drug Allergies Allergy Verified 12/12/19 21:44 - MEDICATIONS Home Medications: Ambulatory Orders Medication Instructions Recorded Confirmed Aspirin [Aspirin EC] 162 mg PO DAILY #60 tablet. 12/13/19 diltiaZEM CD [Cardizem Cd] 180 mg PO DAILY #30 capsule 12/13/19 - PHYSICAL EXAM AT DISCHARGE General Appearance: positive: No acute distress, Alert Eyes Bilateral: positive: Normal inspection, EOMI ENT: positive: ENT inspection nml, No signs of dehydration Neck: positive: Nml inspection, No JVD Respiratory: positive: No respiratory distress, Breath sounds nml Cardiovascular: positive: Regular rate & rhythm, No murmur Abdomen: positive: Non-tender, No distention Skin: positive: Color nml Extremities: positive: Non-tender, No pedal edema Neurologic/Psychiatric: positive: Oriented x3, Other (Non-focal) - LABS Result Diagrams: 12/13/19 05:50 12/13/19 05:50 - DIAGNOSTIC IMAGING Diagnostic Imaging Results: Final report reviewed - FOLLOW UP Follow Up: See PCP GRETTA for further work-up and management of new onset A. fib. - TIME SPENT Time Spent in Discharge (Minutes): 40
[2019-12-14] MEDS ORDERED: ASPIRIN EC 81 MG TABLET PO SCH (09:00)
== END 2019-12-13 17:34 | disposition home or self-care (01) ==
LOC: ED 21:35 → MS2 12-13 02:07
PROVIDERS: ADMIT Internal Medicine; ATTEND Internal Medicine
DX: I48.91 Unspecified atrial fibrillation (principal); I10 Essential (primary) hypertension; R06.83 Snoring
CPT/HCPCS: 36415; 80048; 80053; 83690; 83880; 84443; 84484; 85025; 93005; 96361; 96372; 96374; 96376; 99285; A9270; G0378

== ENCOUNTER 2019-12-30 07:44 | Outpatient (CLI) | payer BC | END 2019-12-30 07:45 | disposition home or self-care (01) | LOC: DI 07:44 | PROVIDERS: ATTEND Nurse Practitioner Family | DX: I51.7 Cardiomegaly (principal); I27.20 Pulmonary hypertension, unspecified; R00.1 Bradycardia, unspecified | CPT/HCPCS: 93306 ==

== ENCOUNTER 2019-12-31 08:26 | Outpatient (CLI) | payer BC ==
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
[2019-12-31 09:38] VITALS: BP 138/74
== END 2019-12-31 08:27 | disposition home or self-care (01) ==
LOC: SC 08:26
PROVIDERS: ATTEND Nurse Practitioner Family
DX: R06.83 Snoring (principal); I48.91 Unspecified atrial fibrillation; E66.9 Obesity, unspecified; Z68.30 Body mass index [BMI] 30.0-30.9, adult
CPT/HCPCS: 99204; 99212

== ENCOUNTER 2020-01-14 07:38 | Outpatient (CLI) | payer BC ==
--- NOTE | 2020-01-14 17:21 | CARDIAC PROCEDURE NOTE ---
DATE OF SERVICE: 01/14/2020 Physician: Meaghan Estrada MD, [facility] INDICATION: Atrial fibrillation. CARDIAC RISK FACTORS: Male gender, hypertension, elevated cholesterol, family history of heart disease. DESCRIPTION OF PROCEDURE: After signing informed consent, the patient underwent a Jeramie-protocol treadmill stress test. No imaging was ordered with this test. RESTING HEART RATE: 57. PEAK HEART RATE: 121 (75% predicted maximum heart rate for age). RESTING BLOOD PRESSURE: 159/88. PEAK BLOOD PRESSURE: 182/68. The patient exercised for 8 minutes and 5 seconds on a Jeramie-protocol treadmill. The patient achieved a peak heart rate of ONLY 121 (75% PMHR) and 10.2 METS. The patient developed moderate shortness of breath and fatigue, and rated his perceived exertion at 16/20 on the Gary scale and requested to stop due to fatigue. There was no chest pain. Oxygen saturation was 97-98% on room air throughout the test. RESTING EKG: Sinus bradycardia at a rate of 57, otherwise within normal limits. EKG AT PEAK: No new ST-segment or T-wave changes to suggest ischemia. SUMMARY 1. Essentially normal resting EKG. 2. No ischemic changes by EKG criteria at 75% predicted maximum heart rate. (The patient had taken his Cartia XL that morning, probably suppressing his heart rate response.) 4. Good exercise tolerance. 5. No imaging was ordered with this test. 6. This patient's cardiac risk based on all the above: Low-Moderate. cc: Mary Samanieog DO TD: 01/14/2020 17:09 [facility]
== END 2020-01-14 07:39 | disposition home or self-care (01) ==
LOC: DI 07:38
PROVIDERS: ATTEND Nurse Practitioner Family
DX: I10 Essential (primary) hypertension (principal); E78.00 Pure hypercholesterolemia, unspecified; Z82.49 Family history of ischemic heart disease and other diseases of the circulatory system
CPT/HCPCS: 93016; 93017; 93018

== ENCOUNTER → 2020-01-19 | Outpatient (CLI) | payer BC | LOC: SC 19:30 | PROVIDERS: ATTEND Internal Medicine Pulmonary Disease | DX: G47.33 Obstructive sleep apnea (adult) (pediatric) (principal) | CPT/HCPCS: 95806 ==

== ENCOUNTER 2020-01-29 09:33 | Outpatient (CLI) | payer BC ==
--- NOTE | 2020-01-29 10:22 | SLEEP CARE CONSULTATION ---
Information from patient questionnaire entered by Graciela Billy. I have reviewed and concur with the information entered by Graciela Billy. This document represents the service I personally performed and the decisions made by , Dania Calvo ARNP. History of Present Illness Service Date and Time: 01/29/202033 Initial [place] Sleepiness Scale score: 1 (in 2019) Current [place] Sleepiness Scale score: 1 Additional HPI information: RADHA NOONAN returns for follow up and results of the recently performed home sleep study. He was found to have mild sleep apnea with an average AHI of 9.7 and a brigid oxygen saturation of 76.7%. I explained the pathophysiology behind obstructive sleep apnea. We then spent quite a bit of time discussing different treatment options. For mild obstructive sleep apnea, surgery and oral appliance are alternatives to nasal CPAP therapy but in moderate or severe cases, nasal CPAP is the most effective and reliable treatment. Patient would like to try the oral appliance to treat his sleep apnea. Because apnea is more severe in the supine position, then positional management therapy could be effective. Methods discussed such as positioning with pillows, using a T-shirt with tennis balls in the back, and shown commercial products that have a pillow format on back to prevent supine sleep. I reviewed the impact of weight changes on sleep apnea and strongly recommended losing weight. AASM patient education on Non Pap treatment pamphlets reviewed and given to patient. Patient counseled not drink alcohol less than 4 hours before bedtime as it can increase snoring and apnea. Patient denies drowsy driving. Sleep Study - Results Type of Sleep Study: Home sleep study Prior sleep studies: No Polysomnography/Home Sleep Study results: SLEEP TIME AND EFFICIENCY: The sleep study recording began at 08:49:36 PM and ended at 05:35:16 AM. Total recording time was 525.7 minutes. The total sleep time was 481.5 minutes. The sleep efficiency was 91.6 percent. The patient spent 142.7 minutes supine, and spent 338.9 minutes non-supine. The patients own estimate of sleep time was 8.80 hours. RESPIRATORY DATA: The AHI in this report is indexed to sleep time based on actigraphy. The AASM defines this as MARIO ALBERTO. The AHI on this type 3 Home Sleep Study may understate the AHI determined on a type 1 or 2 study, since EEG is not monitored resulting in the inability to score non-desaturating hypopneas. Based on 4% Calculation: The AHI4% calculation of 7.1 per hour of recording time was based on a total of 2 scored apneas and 55 scored hypopneas with 4% desaturations. Supine AHI4%: 9.7 per hour. Non-supine AHI4%: 6.0 per hour. Oxygen Summary: Patient's baseline O2 saturation was 92.8 %. The patient spent 154.8 minutes at an oxygen saturation less than 90%, and 5.0 minutes less than 85%. The desaturation index was 8.1 events per hour sleep time. The lowest saturation was 76.7 %. SNORING: The percent of the study time spent snoring was 0.0 %. The Snoring Count was 0 . The Snoring Index was 0.0 . PULSE RATE REVIEW: The mean heart rate was 50 beats per minute. The rate ranged from a low of 42 to a high of 66 beats per minute. Allergies and Home Medications Drug allergies reviewed: Yes (NKDA) Home medication list reviewed: Yes (no changes) Review of Systems Review of systems same as previous: Yes (no changes) Physical Exam Heart Rate: 48 O2 Saturation: 97 Height: 6 ft 6 in Weight: 264 lb Body Mass Index: 30.4 BMI Classification: Obese Impression and Plan 1. Obstructive Sleep Apnea-Hypopnea Syndrome, mild, with lowest oxygen saturation of 76.7%. Positive pressure therapy could benefit his atrial fibrillation and hypertension. As mentioned above, the patient chose an oral appliance to treat their apnea. A list of accredited dentists in the area was given to patient. A 3 month follow up will be made to see if appliance has reduced symptoms. If so, another polysomnography will be ordered with use of the oral appliance to check efficacy in reducing apnea. Until patient is able to use the oral appliance, positional therapy is advised to avoid supine sleep with pillow positioning or one of the commercial products because apnea is more severe supine. * Oral appliance. * Continue to lose weight. * Avoid alcohol consumption near bedtime. * Avoid supine sleep by splinting with pillows or obtain belted sleep position aid. * The patient is again cautioned about driving until sleepiness completely resolves. * Return for follow up in three months. I will assess response to therapy. Visit Type: In Office Time Spent with Patient (minutes): 18 Provider Statement: I spent 100% of the Face to Face Visit with the patient with greater than 50% spent counseling the patient and coordination of care.
== END 2020-01-29 09:34 | disposition home or self-care (01) ==
LOC: SC 09:33
PROVIDERS: ATTEND Nurse Practitioner Family
DX: G47.33 Obstructive sleep apnea (adult) (pediatric) (principal); E66.9 Obesity, unspecified; Z68.30 Body mass index [BMI] 30.0-30.9, adult
CPT/HCPCS: 99212; 99213

== ENCOUNTER 2020-03-17 11:29 | Emergency (ER) | payer BC ==
[2020-03-17 11:41] VITALS: BP 155/77
--- NOTE | 2020-03-17 11:59 | ED Physician Documentation ---
History of Present Illness - Stated complaint Stated Complaint: L LEG SWELLING - Chief complaint Chief Complaint: Ext Problem - History obtained from History obtained from: Patient - History of Present Illness Timing: Prior to arrival, How many days ago (4) - Additonal information Additional information: 60-year-old male presents to the emergency department for evaluation of 4 days with left lower extremity swelling and a painful rash on his anterior lower leg. He reports that when the pain initially began it felt like he had developed shinsplints but then he noticed faint red rash that has come to resemble petechiae. He denies chest pain, syncope, dyspnea on exertion, joint pain, hematuria, abdominal pain, hemoptysis, nausea vomiting, melena. He has no history of similar rash or lower extremity swelling or pain. This gentleman was admitted to the hospital in November of 2019 with afib rvr; During the course of the hospitalization he coverted to NSR with diltiazem. He remains on Cardizem and aspirin daily. He is not on an anticoagulant. pmh: htn, atrial fibrillation meds: asa 81 daily, diltiazem 180 mg daily soc: no tobacco Review of Systems Constitutional: denies: Fever, Chills, Myalgias, Fatigue Eyes: reports: Reviewed and negative Ears: reports: Reviewed and negative Nose: denies: Rhinorrhea / runny nose, Congestion, Epistaxis Throat: denies: Dental pain / toothache, Oral lesions / sores, Sore throat, Swollen tonsils Cardiac: reports: Other (swelling left lower leg). denies: Chest pain / pressure, Palpitations, Calf pain Respiratory: denies: Dyspnea, Cough, Hemoptysis, Wheezing GI: denies: Abdominal Pain, Abdominal Swelling, Nausea, Vomiting, Constipation, Diarrhea, Hematemesis : denies: Dysuria, Hematuria Skin: reports: Rash Musculoskeletal: reports: Extremity swelling (left lower leg). denies: Neck pain, Back pain, Joint pain Neurologic: denies: Generalized weakness, Numbness, Near syncope, Syncope, Seizure, Confused, Altered mental status, Headache, Head injury, LOC Psychiatric: denies: Depressed, Suicidal PD PAST MEDICAL HISTORY - Past Medical History Cardiovascular: Hypertension, High cholesterol Respiratory: None Neuro: None Endocrine/Autoimmune: None GI: None : None HEENT: None Psych: None Musculoskeletal: None Derm: None - Past Surgical History Past Surgical History: No General: Colonoscopy - Present Medications Home Medications: Ambulatory Orders Medication Instructions Recorded Confirmed Aspirin [Aspirin EC] 162 mg PO DAILY #60 tablet. 12/13/19 diltiaZEM CD [Cardizem Cd] 180 mg PO DAILY #30 capsule 12/13/19 - Allergies Allergies/Adverse Reactions: Allergies Allergy/AdvReac Type Severity Reaction Status Date / Time No Known Drug Allergies Allergy Verified 03/17/20 11:39 - Social History Does the pt smoke?: No Smoking Status: Never smoker Does the pt drink ETOH?: Yes Does the pt have substance abuse?: No - Immunizations Immunizations are current?: Yes - POLST Patient has POLST: No POLST Status: Full Code PD ED PE EXPANDED - General General: Alert, No acute distress, Well developed/nourished - HEENT HEENT: Atraumatic, PERRL, Moist mucous membranes, Pharynx normal. No: Pharyngeal erythema, Swollen tonsils, Tonsillar exudate - Neck Neck: Supple w/out meningeal sx. No: Adenopathy - Cardiac Cardiac: Regular Rate, Radial strong equal, Pedal strong equal, Cap refill < 2 sec. No: Murmur Present - Respiratory Respiratory: Clear to ausultation manolo. No: Distress, Labored - Abdomen Abdomen: Normal Bowel sounds. No: Tender to palpation - Derm Derm: Petecchiae (left lower anterior leg) - Extremities Extremities: Left leg (Swelling left lower anterior leg with noted petechiae. No posterior calf pain tenderness.) - Neuro Neuro: Alert and Oriented X 3, CNII-XII intact, Normal finger nose, Normal speech - GCS Eye Opening: Spontaneous Motor: Obeys Commands Verbal: Oriented Total: 15 Results - Vitals Vitals: Vital Signs - 24 hr 03/17/20 11:35 Heart Rate 65 Respiratory 17 Rate Blood Pressure 155/77 H O2 Saturation 96 Oxygen O2 Source Room air - EKG (time done) 1200 Rate: Rate (enter#) (62) Rhythm: NSR [place]: Normal Intervals: Normal ID QRS: Normal Ischemia: Normal ST segments Compare to prior EKG: Changed from prior EKG (now sinus rythm) Computer interpretation: Agree with computer - Labs Labs: Laboratory Tests 03/17/20 03/17/20 03/17/20 12:00 12:00 12:00 WBC 6.5 RBC 5.03 Hgb 14.6 Hct 43.4 MCV 86.3 MCH 29.0 MCHC 33.6 RDW 12.6 Plt Count 233 MPV 9.3 Neut # (Auto) 4.2 Lymph # (Auto) 1.5 [place] # (Auto) 0.4 Eos # (Auto) 0.3 Baso # (Auto) 0.0 Absolute Nucleated RBC 0.00 Nucleated RBC % 0.0 ESR 4 Sodium 139 Potassium 4.1 Chloride 102 Carbon Dioxide 25 Anion Gap 12.0 BUN 8 Creatinine 0.9 Estimated GFR (MDRD) 86 L Glucose 134 H Calcium 9.4 Total Bilirubin 0.9 AST 24 ALT 21 Alkaline Phosphatase 79 C-Reactive Protein < 1.0 Total Protein 6.9 Albumin 4.1 Globulin 2.8 Albumin/Globulin Ratio 1.5 Lipase 20 L Urine Color Urine Clarity Urine pH Ur Specific [place] Urine Protein Urine Glucose (UA) Urine Ketones Urine Occult Blood Urine Nitrite Urine Bilirubin Urine Urobilinogen Ur Leukocyte Esterase Ur Microscopic Review Urine Culture Comments 03/17/20 12:39 WBC RBC Hgb Hct MCV MCH MCHC RDW Plt Count MPV Neut # (Auto) Lymph # (Auto) [place] # (Auto) Eos # (Auto) Baso # (Auto) Absolute Nucleated RBC Nucleated RBC % ESR Sodium Potassium Chloride Carbon Dioxide Anion Gap BUN Creatinine Estimated GFR (MDRD) Glucose Calcium Total Bilirubin AST ALT Alkaline Phosphatase C-Reactive Protein Total Protein Albumin Globulin Albumin/Globulin Ratio Lipase Urine Color YELLOW Urine Clarity CLEAR Urine pH 7.0 Ur Specific [place] <=1.005 Urine Protein NEGATIVE Urine Glucose (UA) NEGATIVE Urine Ketones NEGATIVE Urine Occult Blood NEGATIVE Urine Nitrite NEGATIVE Urine Bilirubin NEGATIVE Urine Urobilinogen 0.2 (NORMAL) Ur Leukocyte Esterase NEGATIVE Ur Microscopic Review NOT INDICATED Urine Culture Comments NOT INDICATED - Rads (name of study) US DVT left leg Radiology: Final report received (No acute DVT or thrombosis is seen) PD MEDICAL DECISION MAKING - ED course Complexity details: reviewed results, re-evaluated patient, considered differential, d/w patient, d/w family ED course: 60-year-old male presents to the emergency department with 4 days of left lower leg swelling and development of petechiae. He has had no fevers, joint pain, joint swelling, hemoptysis, dysuria, hematuria or melena. He has no history of similar. He is not anticoagulated though he does take a daily aspirin. On initial exam my suspicion was that this gentleman may have a form of vasculitis. His labs are reviewed in full. He has no leukocytosis. His CRP and sedimentation rate are essentially normal. His JUDE is pending. His urine showed no hematuria or proteinuria. An ultrasound was completed to rule out DVT and there is no thrombus seen. It is possible that this gentleman has adult henoch-Schoenlein purpura. Steroids are controversial in the management of the of this and therefore I will defer steroid administration today. I have recommended that he continue to take ibuprofen as needed for discomfort. He will be advised to follow-up very closely with his primary care provider and he is to return to the emergency dep artment if he has further development of new rash, joint pain or swelling, develops hemoptysis hematuria or notices bloody stools or has any other emergent concerns Departure - Departure Disposition: 01 Home, Self Care Clinical Impression: Left leg swelling, Purpura Condition: Stable Record reviewed to determine appropriate education?: Yes Instructions: ED HSP Henoch Schonlein Purpura Comments: Ezekiel I hope that you are feeling better soon. Today your labs were all essentially normal. Specifically the labs looking for markers of vasculitis were normal. The ultrasound of your leg did not show any blood clot. Your EKG showed sinus rhythm. I believe it is possible that you could still have a condition called HSP henoch-Schoenlein purpura. The administration of steroids can be controversial if this is the condition that you have therefore I will defer administering them today. I would like you to schedule very close follow- up with your primary care provider to discuss this emergency department visit. If at any point you feel that you develop new rash, have joint pain, develop fevers, have any bloody stools urine or sputum or any other emergent concerns then please return immediately to the emergency department. You may continue to take the ibuprofen as you have for lower leg discomfort
--- NOTE | 2020-03-17 12:06 | XRAY Report ---
PROCEDURE: Chest 1 View X-Ray INDICATIONS: chest pain TECHNIQUE: One view of the chest was acquired. COMPARISON: None FINDINGS: Surgical changes and devices: None. Lungs and pleura: No pleural effusions or pneumothorax. Lungs are clear. Mediastinum: Mediastinal contours appear normal. Heart size is enlarged. Bones and chest wall: No suspicious bony lesions. Overlying soft tissues appear unremarkable. IMPRESSION: No acute cardiopulmonary pathology. Reviewed by: Jd Gallo MD on 03/17/2020 11:04 AM FLORINA Approved by: Jd Gallo MD on 03/17/2020 11:04 AM AKDUC Station ID: [id number]
[2020-03-17 12:17] LABS: BASOPHILS % (AUTO) 0.6 %; EOSINOPHILS # (AUTO) 0.3 10^3/uL (0.0-0.7); EOSINOPHILS % (AUTO) 5.2 %; HGB - HEMOGLOBIN 14.6 g/dL (14.0-18.0); LYMPHOCYTES # (AUTO) 1.5 10^3/uL (1.5-3.5); LYMPHOCYTES % (AUTO) 22.7 %; MEAN CORPUSCULAR HGB CONC 33.6 g/dL (32.0-36.0); MEAN CORPUSCULAR VOLUME 86.3 fL (80.0-94.0); MEAN PLATELET VOLUME 9.3 fL (7.4-11.4); MONOCYTES # (AUTO) 0.4 10^3/uL (0.0-1.0); MONOCYTES % (AUTO) 6.7 %; NEUTROPHILS # (AUTO) 4.2 10^3/uL (1.5-6.6); NEUTROPHILS % (AUTO) 64.5 %; PLT - PLATELET COUNT 233 10^3/uL (130-450); RED BLOOD COUNT 5.03 10^6/uL (4.70-6.10); RED CELL DISTRIBUTION WIDTH 12.6 % (12.0-15.0); WHITE BLOOD COUNT 6.5 x10^3/uL (4.8-10.8)
[2020-03-17 12:34] LABS: ALBUMIN 4.1 g/dL (3.2-5.5); ALBUMIN/GLOBULIN RATIO 1.5 (1.0-2.2); ALKALINE PHOSPHATASE 79 IU/L (42-121); ALT ALANINE AMINOTRANSFERASE 21 IU/L (10-60); AST ASPARTATE AMINOTRANSFERASE 24 IU/L (10-42); BILIRUBIN,TOTAL 0.9 mg/dL (0.2-1.0); BUN - BLOOD UREA NITROGEN 8 mg/dL (6-20); CALCIUM 9.4 mg/dL (8.5-10.3); CARBON DIOXIDE - CO2 25 mmol/L (21-32); CHLORIDE 102 mmol/L (101-111); CREATININE 0.9 mg/dL (0.6-1.2); GLUCOSE 134 mg/dL (70-100); LIPASE 20 U/L (22-51); SODIUM 139 mmol/L (135-145); TOTAL PROTEIN 6.9 g/dL (6.7-8.2)
[2020-03-17 12:39] LABS: CRP - C-REACTIVE PROTEIN < 1.0 mg/dL (0-1.0)
[2020-03-17 12:57] LABS: BILIRUBIN,URINE NEGATIVE (NEGATIVE); GLUCOSE, URINE (UA) NEGATIVE (NEGATIVE); KETONES,URINE (UA) NEGATIVE (NEGATIVE); LEUKOCYTE ESTERASE, URINE NEGATIVE (NEGATIVE); NITRITE,URINE NEGATIVE (NEGATIVE); OCCULT BLOOD,URINE NEGATIVE (NEGATIVE); PROTEIN,URINE NEGATIVE (NEGATIVE); UROBILINOGEN,URINE 0.2 (NORMAL) E.U./dL (NORMAL)
[2020-03-17 12:59] LABS: CLARITY,URINE CLEAR (CLEAR)
--- NOTE | 2020-03-17 13:46 | Ultrasound Report ---
PROCEDURE: Duplex Ext Veins Left INDICATIONS: swelling; petechiae TECHNIQUE: Real-time imaging, as well as color and pulse Doppler interrogation, were performed of the lower extr emity deep veins from the inguinal ligament to the popliteal fossa. COMPARISON: None. FINDINGS: The deep veins are normally compressible, and free of intraluminal thrombus. Color and pu lse Doppler demonstrate normal phasic intraluminal flow. There is normal augmentation response to di stal compression maneuver. Popliteal fossa presumed Dias's cyst measures 1.5 x 4.5 x 6.6 cm. IMPRESSION: No DVT found. Incidental finding of a Dias cyst at the posterior medial knee. Reviewed by: Alejandro Flanagan MD on 03/17/2020 1:45 PM PDT Approved by: Alejandro Flanagan MD on 03/17/2020 1:45 PM PDT Station ID: [id number]
[2020-03-19 12:21] LABS: ANA SCREEN NEGATIVE (NEGATIVE)
== END 2020-03-17 14:00 | disposition home or self-care (01) ==
LOC: ED 11:29
DX: R22.42 Localized swelling, mass and lump, left lower limb (principal); D69.2 Other nonthrombocytopenic purpura; I10 Essential (primary) hypertension
CPT/HCPCS: 36415; 71045; 80053; 81001; 81003; 83690; 85025; 85651; 86038; 86140; 87040; 87086; 93005; 99284

== ENCOUNTER 2020-05-12 08:45 | Outpatient (CLI) | payer BC ==
[2020-05-12 12:40] LABS: BASOPHILS % (AUTO) 0.4 %; EOSINOPHILS # (AUTO) 0.2 10^3/uL (0.0-0.7); EOSINOPHILS % (AUTO) 2.1 %; LYMPHOCYTES # (AUTO) 1.8 10^3/uL (1.5-3.5); LYMPHOCYTES % (AUTO) 25.8 %; MEAN CORPUSCULAR HEMOGLOBIN 29.6 pg (27.0-31.0); MEAN CORPUSCULAR HGB CONC 34.3 g/dL (32.0-36.0); MEAN CORPUSCULAR VOLUME 86.1 fL (80.0-94.0); MEAN PLATELET VOLUME 9.7 fL (7.4-11.4); MONOCYTES # (AUTO) 0.5 10^3/uL (0.0-1.0); MONOCYTES % (AUTO) 7.4 %; NEUTROPHILS # (AUTO) 4.5 10^3/uL (1.5-6.6); NEUTROPHILS % (AUTO) 64.2 %; PLT - PLATELET COUNT 256 10^3/uL (130-450); RED BLOOD COUNT 5.41 10^6/uL (4.70-6.10); RED CELL DISTRIBUTION WIDTH 12.4 % (12.0-15.0)
[2020-05-12 12:45] LABS: BILIRUBIN,URINE NEGATIVE (NEGATIVE); GLUCOSE, URINE (UA) NEGATIVE (NEGATIVE); KETONES,URINE (UA) NEGATIVE (NEGATIVE); LEUKOCYTE ESTERASE, URINE NEGATIVE (NEGATIVE); NITRITE,URINE NEGATIVE (NEGATIVE); OCCULT BLOOD,URINE NEGATIVE (NEGATIVE); PROTEIN,URINE NEGATIVE (NEGATIVE); UROBILINOGEN,URINE 1 (NORMAL) E.U./dL (NORMAL)
[2020-05-12 13:00] LABS: ALBUMIN 4.4 g/dL (3.2-5.5); ALBUMIN/GLOBULIN RATIO 1.4 (1.0-2.2); ALKALINE PHOSPHATASE 84 IU/L (42-121); ALT ALANINE AMINOTRANSFERASE 18 IU/L (10-60); AST ASPARTATE AMINOTRANSFERASE 17 IU/L (10-42); BUN - BLOOD UREA NITROGEN 15 mg/dL (6-20); CARBON DIOXIDE - CO2 27 mmol/L (21-32); CHLORIDE 105 mmol/L (101-111); CHOL/HDL RATIO 4.1 (<5.0); CHOLESTEROL 211 mg/dL; CREATININE 0.7 mg/dL (0.6-1.2); GLUCOSE 111 mg/dL (70-100); HDL CHOLESTEROL 51 mg/dL; LDL CHOLESTEROL,CALCULATED 135 mg/dL; LDL/HDL RATIO 2.6 (<3.6); SODIUM 140 mmol/L (135-145); TOTAL PROTEIN 7.6 g/dL (6.7-8.2); VLDL CHOLESTEROL 25 mg/dL
[2020-05-12 13:10] LABS: BACTERIA,URINE None Seen /HPF (None Seen); CLARITY,URINE CLEAR (CLEAR); RBC,URINE None Seen /HPF (0-5); SQUAMOUS EPITHELIAL CELL,UR FEW Squamous (<= Few)
== END 2020-05-12 08:46 | disposition home or self-care (01) ==
LOC: LAB.WCP 08:45
PROVIDERS: ATTEND Family Medicine
DX: I48.91 Unspecified atrial fibrillation (principal); R35.1 Nocturia; Z12.5 Encounter for screening for malignant neoplasm of prostate
CPT/HCPCS: 36415; 80053; 80061; 81001; 83721; 84153; 85025; 87086

== ENCOUNTER 2020-11-15 11:29 | Outpatient (CLI) | payer BC ==
--- NOTE | 2020-11-15 17:38 | XRAY Report ---
PROCEDURE: Lumbar Spine 2 View INDICATIONS: BACK PX, LUMBAR TECHNIQUE: 3 views of the lumbar spine were acquired. COMPARISON: None. FINDINGS: Bones: 5 [id number] vertebrae are present. There is mild convex right curvature of the lumbar spine. There is trace L2-L3, L3-L4 and L4-L5 retrolisthesis. No vertebral body compression fractures. No suspicious bony lesions. Mild L1-L2, L2-L3, L3-L4, L4-L5 and L5-S1 degenerative disease. Mild L3 -L4, L4-L5, L5-S1 facet arthropathy. Soft tissues: Overlying bowel gas pattern is normal. No suspicious soft tissue calcifications. IMPRESSION: 1. Multilevel degenerative disc disease. 2. Multilevel facet arthropathy. 3. No fracture. No acute osseous lesion. If there is continued clinical concern for pathology, then M RI should be considered for further evaluation. Reviewed by: Monica Valente MD, PhD on 11/15/2020 5:36 PM PDT Approved by: Monica Valente MD, PhD on 11/15/2020 5:36 PM PDT Station ID: [id number]
== END 2020-11-15 23:59 | disposition home or self-care (01) ==
LOC: DI.N 11:29
PROVIDERS: ATTEND Family Medicine
DX: M47.9 Spondylosis, unspecified (principal); M47.816 Spondylosis without myelopathy or radiculopathy, lumbar region; M47.817 Spondylosis without myelopathy or radiculopathy, lumbosacral region; M51.36 Other intervertebral disc degeneration, lumbar region; M51.37 Other intervertebral disc degeneration, lumbosacral region
CPT/HCPCS: 36415; 85651; 86140; 86812

== ENCOUNTER 2020-11-15 12:01 | Outpatient (CLI) | payer BC | END 2020-11-15 23:59 | disposition home or self-care (01) | LOC: LAB.N 12:01 | PROVIDERS: ATTEND Family Medicine | DX: M47.9 Spondylosis, unspecified (principal) | CPT/HCPCS: 36415; 85651; 86140; 86812 ==